=== PATIENT | female | born 2000 | race Caucasian/White ===

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

== ENCOUNTER → 2021-08-17 | Outpatient (CLI) | payer BC ==
--- NOTE | 2021-08-17 08:10 | US ---
EXAMINATION TYPE: US thyroid st tissue head/neck DATE OF EXAM: 08/17/2021 COMPARISON: NONE CLINICAL HISTORY: E04.1 THYROID NODULE. Pt states doctor felt thyroid was uneven. GLAND SIZE: Right Lobe: 4.1 x 1.4 x 1.5 cm Overall Parenchyma: homogenous Left Lobe: 5.1 x 1.5 x 1.1 cm Overall Parenchyma: homogeneous Isthmus Thickness: 0.3 cm NODULES RIGHT: # of nodules measured on right: 0 LEFT: # of nodules measured on left: 0 ISTHMUS: # of nodules measured in the isthmus: 0 Bilateral neck scanned, no evidence of lymphadenopathy. IMPRESSION: No solid or cystic nodules seen.
[2021-08-17 10:40] LABS: Basophils # (A) 0.04 X 10*3/uL (0.00-0.10); Basophils % (A) 0.3 %; Eosinophils # (A) 0.17 X 10*3/uL (0.04-0.35); Eosinophils % (A) 1.4 %; HCT 40.3 % (37.2-46.3); HGB 12.3 g/dL (12.0-15.0); Immature Grans, Automated 0.7 %; Lymphocytes # (A) 2.05 X 10*3/uL (0.90-5.00); Lymphocytes % (A) 16.9 %; MCH 26.1 pg (27.0-32.0); MCHC 30.5 g/dL (32.0-37.0); MCV 85.4 fL (80.0-97.0); Mean Platelet Volume 9.9 fL (9.5-12.2); Monocytes # (A) 0.55 X 10*3/uL (0.20-1.00); Monocytes % (A) 4.5 %; NRBC Per 100 WBC 0 /100 WBCS (0.0-0.0); Neutrophils # (A) 9.22 X 10*3/uL (1.80-7.70); Neutrophils % (A) 76.2 %; Platelet Count 220 X 10*3/uL (140-440); RBC 4.72 X 10*6/uL (4.10-5.20); RDW 12.4 % (11.5-14.5); WBC 12.11 X 10*3/uL (4.50-10.00)
[2021-08-17 14:49] LABS: T4, Free (Free Thyroxine) 1.24 ng/dL (0.800-1.800)
[2021-08-17 15:51] LABS: Thyroid Peroxidase Antibodies <9.0 U/mL (0.0-33.0)
== END | disposition home or self-care (01) ==
LOC: RADUSWWP 07:26
PROVIDERS: ATTEND Allergy & Immunology
DX: E04.1 Nontoxic single thyroid nodule (principal); R53.83 Other fatigue
CPT/HCPCS: 36415; 76536; 84439; 84443; 84481; 85025; 86376; 86800

== ENCOUNTER → 2021-08-28 | Outpatient (CLI) | payer BC ==
[2021-08-28 18:16] LABS: Basophils # (A) 0.01 X 10*3/uL (0.00-0.10); Basophils % (A) 0.1 %; Eosinophils # (A) 0 X 10*3/uL (0.04-0.35); Eosinophils % (A) 0 %; HGB 11.6 g/dL (12.0-15.0); Lymphocytes # (A) 1.98 X 10*3/uL (0.90-5.00); Lymphocytes % (A) 28.8 %; MCH 26.2 pg (27.0-32.0); MCHC 30.5 g/dL (32.0-37.0); MCV 85.8 fL (80.0-97.0); Mean Platelet Volume 9.8 fL (9.5-12.2); Monocytes # (A) 0.46 X 10*3/uL (0.20-1.00); Monocytes % (A) 6.7 %; NRBC Per 100 WBC 0 /100 WBCS (0.0-0.0); Neutrophils # (A) 4.36 X 10*3/uL (1.80-7.70); Neutrophils % (A) 63.4 %; Platelet Count 307 X 10*3/uL (140-440); RBC 4.43 X 10*6/uL (4.10-5.20); RDW 12.5 % (11.5-14.5); WBC 6.88 X 10*3/uL (4.50-10.00)
[2021-08-28 18:20] LABS: Immunoglobulin A 71.2 mg/dL (60.0-350.0)
[2021-08-28 20:10] LABS: Gliadin AB IgA, Deaminated NEGATIVE (NEGATIVE); Gliadin AB IgA, Unit 0.3 U/mL
[2021-08-29 07:42] LABS: Aspergillus fumagatus IgE <0.10 kU/L; Birch IgE <0.10 kU/L; Cat Epith & Dander IgE <0.10 kU/L; Cladosporian herbarum IgE <0.10 kU/L; Codfish IgE <0.10 kU/L; Dermato. farinae IgE <0.10 kU/L; Dog Dander IgE <0.10 kU/L; Egg White IgE <0.10 kU/L; Elm IgE <0.10 kU/L; Maple (Box Elder) IgE <0.10 kU/L; Oak IgE <0.10 kU/L; Peanut IgE <0.10 kU/L; Shrimp IgE <0.10 kU/L; Soybean IgE 0.15 kU/L; Walnut IgE (Food) <0.10 kU/L
[2021-08-29 12:31] LABS: Almond IgE <0.10 kU/L (<0.10); Almond IgE Class CLASS 0; Cashew IgE <0.10 kU/L (<0.10); Cashew IgE Class CLASS 0; Crab IgE <0.10 kU/L (<0.10); Crab IgE Class CLASS 0; Pecan IgE <0.10 kU/L (<0.10); Pecan IgE Class CLASS 0; Pistachio IgE Class CLASS 0
[2021-08-29 12:32] LABS: Alt. alternata IgE Class CLASS 0; Alternaria alternata IgE <0.10 kU/L (<0.10); Coffee IgE <0.10 kU/L (<0.10); Coffee IgE Class CLASS 0; Meadow Grs (KY blue) IgE <0.10 kU/L (<0.10); Meadow Grs (KY blue) IgE Class CLASS 0; Salmon IgE <0.10 kU/L (<0.10); Salmon IgE Class CLASS 0; Walnut Tree IgE <0.10 kU/L (<0.10); Walnut Tree IgE Class CLASS 0
[2021-08-29 12:33] LABS: Willow Tree IgE <0.10 kU/L (<0.10); Willow Tree IgE Class CLASS 0
== END | disposition home or self-care (01) ==
LOC: LABWHC1 13:34
PROVIDERS: ATTEND Allergy & Immunology
DX: K52.9 Noninfective gastroenteritis and colitis, unspecified (principal); D72.0 Genetic anomalies of leukocytes; T78.3XXA Angioneurotic edema, initial encounter
CPT/HCPCS: 36415; 82784; 83516; 85025; 86003

== ENCOUNTER → 2021-09-10 | Outpatient (CLI) | payer BC ==
[2021-09-10 14:43] LABS: Appearance,Urine Cloudy (Clear); Bilirubin,Urine Small (Negative); Blood,Urine Negative (Negative); Color,Urine Dark Yellow (Yellow); Ketones,Urine Negative (Negative); Nitrite,Urine Negative (Negative); Specific Gravity,Urine 1.027 (1.001-1.030)
[2021-09-10 14:49] LABS: Hepatitis B Surface Antigen Nonreactive (Nonreactive); Hepatitis C IgG Antibody Nonreactive (Nonreactive); Protein, Total 6.2 g/dL (6.2-8.2)
[2021-09-10 15:01] LABS: Bacteria,Urine None Seen /HPF (None Seen); Calcium Oxalate Crystals,Urine Present /LPF (None Seen)
[2021-09-10 15:10] LABS: African American GFR (CKD) 149.9 (60.0-200.0); Albumin 4.5 g/dL (3.8-4.9); Albumin/Globulin Ratio 2.18 (1.60-3.17); Anion Gap 11.6 mmol/L (10.00-18.00); BUN/Creat Ratio 16.45 Ratio (12.00-20.00); Blood Urea Nitrogen 10.1 mg/dL (9.0-27.0); C Reactive Protein 2.6 mg/dL (0.00-0.80); Calcium 9.3 mg/dL (8.7-10.3); Carbon Dioxide 24.3 mmol/L (20.0-27.5); Globulin 2.1 g/dL (1.6-3.3); Non-African American GFR(CKD) 129.3 (60.0-200.0); Potassium 3.8 mmol/L (3.5-5.5); Total Bilirubin 0.2 mg/dL (0.30-1.20); Total Protein 6.5 g/dL (6.2-8.2)
[2021-09-11 01:11] LABS: Immunoglobulin E 0.49 IU/mL (0.00-114.00)
[2021-09-11 10:42] LABS: Chicken IgE Class CLASS 0
[2021-09-11 11:46] LABS: Free Kappa Lt Chain Qnt, Serum 1.15 mg/dL (0.33-1.94); Free Lambda Lt Chain Qnt, Seru 1.11 mg/dL (0.57-2.63)
[2021-09-11 11:51] LABS: Albumin 3.85 g/dL (3.80-4.90); Gamma Globulin 0.63 g/dL (0.70-1.50)
== END | disposition home or self-care (01) ==
LOC: LABWHC1 08:08
PROVIDERS: ATTEND Allergy & Immunology
DX: L50.8 Other urticaria (principal); E53.8 Deficiency of other specified B group vitamins
CPT/HCPCS: 36415; 80053; 81001; 82595; 82607; 82746; 82785; 83883; 84165; 85652; 86003; 86038; 86140; 86160; 86162; 86334; 86803; 87340